=== PATIENT | male | born 1950 | race Caucasian/White ===

== ENCOUNTER → 2018-06-14 | Outpatient (CLI) | payer BC, MEDICARE ==
--- NOTE | 2018-06-14 09:01 | US ---
EXAMINATION TYPE: US carotid duplex BILAT DATE OF EXAM: 06/14/2018 COMPARISON: US CLINICAL HISTORY: R42 Dizziness and giddiness. EXAM MEASUREMENTS: RIGHT: Peak Systolic Velocity (PSV) cm/sec ----- Right CCA: 100.7 ----- Right ICA: 108.4 ----- Right ECA: 98.5 ICA/CCA ratio: 1.1 RIGHT: End Diastole cm/sec ----- Right CCA: 20.4 ----- Right ICA: 29.2 ----- Right ECA: 9.5 LEFT: Peak Systolic Velocity (PSV) cm/sec ----- Left CCA: 89.7 ----- Left ICA: 94.7 ----- Left ECA: 75.4 ICA/CCA ratio: 1.1 LEFT: End Diastole cm/sec ----- Left CCA: 16.0 ----- Left ICA: 27.2 ----- Left ECA: 0.0 VERTEBRALS (direction of flow): Right Vertebral: Antegrade Left Vertebral: Antegrade Rhythm: Normal No significant stenosis seen. Bilateral plaque noted. Intimal thickening is noted bilaterally. IMPRESSION: 1. Atheromatous plaquing without significant flow-limiting stenosis. Criteria for Assigning % of Stenosis / Diameter reduction (Estimation based on the indirect measurements of the internal carotid artery velocities (ICA PSV). 1. Normal (no stenosis)=ICA PSV < 125 cm/s: ratio < 2.0: ICA EDV<40 cm/s. 2. Less than 50% stenosis=ICA PSV < 125 cm/s: ratio < 2.0: ICA EDV<40 cm/s. 3. 50 to 69% stenosis=ICA PSV of 125 to 230 cm/s: ration 2.0 ? 4.0: ICA EDV 40-100 cm/s. 4. Greater than 70% stenosis to near occlusion= ICA PSV > 230 cm/s: ratio > 4.0: ICA EDV > 100 cm/s. 5. Near occlusion= ICA PSV velocities may be low or undetectable: variable ratio and ICA EDV. 6. Total occlusion=unable to detect flow.
== END | disposition home or self-care (01) ==
LOC: RADUSWWP 06:49
PROVIDERS: ATTEND Family Medicine
DX: I65.23 Occlusion and stenosis of bilateral carotid arteries (principal)
CPT/HCPCS: 93880

== ENCOUNTER → 2018-11-20 | Outpatient (CLI) | payer MEDICARE, BC ==
--- NOTE | 2018-11-20 14:51 | CT ---
EXAMINATION TYPE: CT brain wo con DATE OF EXAM: 11/20/2018 COMPARISON: 12/29/2010 MRI HISTORY: Hemiplegia, history of TIA's CT DLP: 1121 mGycm Automated exposure control for dose reduction was used. FINDINGS: Calcification the basal ganglia noted. Ventricular system is compatible with the patient's age. There are areas of faint low-attenuation within the white matter which are nonspecific but most typical ar eas of remote microvascular ischemia. No midline shift or mass effect. No acute hemorrhage. Calvarium intact. IMPRESSION: NONSPECIFIC WHITE MATTER CHANGES MOST TYPICAL REMOTE MICROVASCULAR ISCHEMIA. CORRELATE WITH MRI CL INICALLY WARRANTED.
== END | disposition home or self-care (01) ==
LOC: RADCTMAIN 14:22
PROVIDERS: ATTEND Nurse Practitioner Family
DX: R90.89 Other abnormal findings on diagnostic imaging of central nervous system (principal); I69.959 Hemiplegia and hemiparesis following unspecified cerebrovascular disease affecting unspecified side
CPT/HCPCS: 70450

== ENCOUNTER → 2018-12-18 | Outpatient (CLI) | payer MEDICARE, BC ==
[2018-12-18 17:38] LABS: HCT 44.3 % (39.0-53.0); HGB 14.8 gm/dL (13.0-17.5); MCHC 33.3 g/dL (31.0-37.0); MCV 83.9 fL (80.0-100.0); Mean Platelet Volume 6.3; Platelet Count 312 k/uL (150-450); RBC 5.28 m/uL (4.30-5.90); RDW 12.7 % (11.5-15.5); WBC 8.5 k/uL (3.8-10.6)
[2018-12-18 23:20] LABS: Albumin 4.4 g/dL (3.80-4.90); Albumin/Globulin Ratio 2.59 (1.60-3.17); Calcium 9.4 mg/dL (8.7-10.3); Globulin 1.7 g/dL (1.6-3.3); Potassium 4.2 mmol/L (3.5-5.5); Total Bilirubin 0.4 mg/dL (0.2-1.2); Total Protein 6.1 g/dL (6.2-8.2)
== END | disposition home or self-care (01) ==
LOC: LABWHC1 17:13
PROVIDERS: ATTEND Psychiatry & Neurology Pain Medicine
DX: I69.959 Hemiplegia and hemiparesis following unspecified cerebrovascular disease affecting unspecified side (principal)
CPT/HCPCS: 36415; 80053; 83090; 85027

== ENCOUNTER → 2020-04-15 | Outpatient (CLI) | payer MEDICARE, BC ==
--- NOTE | 2020-04-15 16:39 | US ---
EXAMINATION TYPE: US venous doppler duplex LE DATE OF EXAM: 04/15/2020 3:48 PM COMPARISON: NONE CLINICAL HISTORY: I83.899 VARICOSE VEINS LOWER EXT. SIDE PERFORMED: Bilateral TECHNIQUE: The lower extremity deep venous system is examined utilizing real time linear array sonog tim with graded compression, doppler sonography and color-flow sonography. VESSELS IMAGED: External Iliac Vein (EIV) Common Femoral Vein Deep Femoral Vein Greater Saphenous Vein * Femoral Vein Popliteal Vein Small Saphenous Vein * Proximal Calf Veins (* superficial vessels) Right Leg: Negative for DVT Left Leg: Negative for DVT IMPRESSION: No evidence of deep vein thrombosis in the right leg and left leg.
== END | disposition home or self-care (01) ==
LOC: RADUSWWP 15:46
PROVIDERS: ATTEND Family Medicine
DX: I83.899 Varicose veins of unspecified lower extremity with other complications (principal)
CPT/HCPCS: 93970

== ENCOUNTER → 2021-04-20 | Outpatient (CLI) | payer MEDICARE, BC ==
--- NOTE | 2021-04-20 07:39 | XR ---
EXAMINATION TYPE: XR orbit detect foreign body DATE OF EXAM: 04/20/2021 COMPARISON: NONE HISTORY: Pre-MRI orbits TECHNIQUE: 3 views obtained FINDINGS: Osseous structures are intact. No definite metallic foreign body overlying the orbits. IMPRESSION: No metallic foreign body overlying the orbits.
--- NOTE | 2021-04-20 13:53 | MR ---
EXAMINATION TYPE: MR cervical spine wo con DATE OF EXAM: 04/20/2021 COMPARISON: CT neck 07/23/2016 HISTORY: M47.812 cervical spondylosis TECHNIQUE: Multiplanar, multisequence images of the cervical spine were acquired. There is motion on the exam, artifact. C2-C3: No evidence for degenerative disc disease. No disc bulge/herniation or protrusion. No Canal stenosis. Foramina are patent bilaterally. C3-C4: Posterior disc bulge contacts the anterior thecal sac causes mild anterior thecal sac effaceme nt, mild bilateral foraminal encroachment present due to uncovertebral joint hypertrophy, facet arthr opathy. C4-C5: Small posterior central disc herniation suspected on the axial images, there is mild mass effe ct on the anterior thecal sac, left-sided foraminal encroachment is present due to uncovertebral join t hypertrophy, facet arthropathy change. C5-C6: Posterior broad-based disc bulge somewhat eccentric towards the right causing anterolateral ma ss effect on the thecal sac, bilateral foraminal encroachment is present due to uncovertebral joint h ypertrophy and facet arthropathy. C6-C7: Posterior extension endplate disc complex causes mild anterior mass effect on the thecal sac. Uncovertebral joint hypertrophy encroaches minimally on the foramina. C7-T1: No evidence for degenerative disc disease. No disc bulge/herniation or protrusion. No Canal stenosis. Foramina are patent bilaterally. Cervical segments are intact. There is normal alignment. Cervical spinal cord is of normal signal. Craniovertebral junction relationships are within normal limits. There is no significant spinal arleen nosis. Spondylosis is present at C5-6, C6-7 with associated loss of disc height signal, is endplate d iscogenic marrow signal change. IMPRESSION: There is motion, artifact on the exam. There is multilevel degenerative disc disease, foraminal encro achment.
== END | disposition home or self-care (01) ==
LOC: RADMRIMAIN 06:34
PROVIDERS: ATTEND Family Medicine
DX: M47.812 Spondylosis without myelopathy or radiculopathy, cervical region (principal); M50.320 Other cervical disc degeneration, mid-cervical region, unspecified level
CPT/HCPCS: 70030; 72141

== ENCOUNTER → 2021-06-07 | Outpatient (CLI) | payer MEDICARE, BC ==
--- NOTE | 2021-06-07 13:54 | P.PAINCN ---
History of Present Illness - Reason for Consult Consult date: 06/07/21 - History of Present Illness This is 70 years old male with a chronic history of severe mid back pain started in December 2020, and started after work-related injury, most of the pain localized between the lower part of shoulder blade area, and also he had some neck pain, but he reported that 90% of his pain is between the shoulder blade area, it's constant and increases with activity, he denies any radicular symptoms, denies any motor or sensory deficits, he denies any fever or night sweats, patient tried physical therapy and he is doing home exercise and he continued to have severe pain Past Medical History Past Medical History: Coronary Artery Disease (CAD), COPD, CVA/TIA, GERD/Reflux, Hyperlipidemia Additional Past Medical History / Comment(s): COPD, coronary artery disease, multiple TIAs, restless leg syndrome, hemorrhoids History of Any Multi-Drug Resistant Organisms: None Reported Past Surgical History: Appendectomy, Heart Catheterization Additional Past Surgical History / Comment(s): heart cath in Past Anesthesia/Blood Transfusion Reactions: Motion Sickness Additional Past Anesthesia/Blood Transfusion Reaction / Comm: VERTIGO Past Psychological History: No Psychological Hx Reported Past Alcohol Use History: None Reported Additional Past Alcohol Use History / Comment(s): QUIT SMOKING 1989, STARTED SMOKING 1969 APPROX Past Drug Use History: None Reported - Past Family History Brother(s) Family Medical History: Cancer Additional Family Medical History / Comment(s): BLADDER Medications and Allergies Home Medications Medication Instructions Recorded Confirmed Type "Dizziness Med" 1 tab PO DAILY PRN 05/22/15 06/07/21 History Budesonide-Formot 160-4.5 Mcg 2 puff INHALATION RT-BID 05/22/15 06/07/21 History [Symbicort 160-4.5 Mcg Inhaler] Cholecalciferol [Vitamin D3 (25 2,000 unit PO DAILY 05/22/15 06/07/21 History Mcg = 1000 Iu)] Omeprazole 40 mg PO QAM 05/22/15 06/07/21 History Simvastatin [Zocor] 40 mg PO HS 05/22/15 06/07/21 History Allergies Allergy/AdvReac Type Severity Reaction Status Date / Time dipyridamole Allergy Rash/Hives Verified 07/23/16 11:36 [From Persantine] venom-honey bee Allergy Anaphylaxis Verified 07/23/16 11:36 [bee venom (honey bee)] ibuprofen [From Motrin] AdvReac Nausea Verified 07/23/16 11:36 Physical Exam Vitals: Intake and Output 06/06/21 06/07/21 06/07/21 22:59 06:59 14:59 Other: Weight 62.596 kg Physical Examinations : -Constitutiona : Cooperative , not in acute distress . -HEENT : nech : supple , no Lymphadenopathy , normal thyroid size . : eyes : no ptosis , no icterus, no p hotophobia . - neurologic : Cranial nerve II to XII intact , no focal neurological deffecit . -psychatric : alert , oriented X 3 , appropriate affect , intact judgment and insight . -Lymphatic : no Lymphadenopathy . - musculoskeltal : Cervical Spine motor stregnth in the deltoid and biceps, normal right side , normal Left side motor stregnth biceps and the wrist extensors normal right side ,normal left side . motor stregnth in the triceps muscle . normal Right side , normal Left side deep tendon reflexes normal at the biceps , normal at Brachioradialis , normal at triceps. cervical facet loading test: Positive Bilaterally Spurling test= positive Right , positive left. Neck distraction test= positive Right , positive left. Veronica sign= positive right, positive left . Thoracic spine= Positive facet loading test mid thoracic area around T6 7 8 Flexion and extension of the torso cc injected with pain Lumber spine moter stegnth lower extremities ,thigh and legs 5/5 Right side , 5/5 Left side Results Comments: MRI of the lumbar spine multilevel cervical degenerative disc disease and multilevel cervical facet arthropathy Assessment and Plan Plan: Assessment and plan=1-thoracic spondylosis with thoracic facet arthropathy 2-cervical spondylosis with cervical facet arthropathy. 3-cervical degenerative disc disease. The patient reported that most of his pain in the thoracic area, we don't have any diagnostic tests for the thoracic spine Patient given a a total of computed tomography scan of the thoracic spine, and he will follow up in the pain clinic after that Most likely he have to do diagnostic medial branch block, the levels will be determined later on Time with Patient: Greater than 30 PQRS Measure Charge Sheet Measure #130: Documentation of Current Meds in Medical Chart: Patient's medications documented in chart Measure #226: Tobacco Use: Screen & Cessation Intervention: Pt not a tobacco user Measure #111: Pneumonia Vaccination: Pneumococcal vaccine administered or previously received Measure #47: Advance Care Plan: Advance care planning discussed & documented, pt chose/unable to give Measure #412: Opioid Treatment Agreement: No documentation of signed opioid treatment agreement Measure #408: Opioid Therapy Follow-up Evaluation: Patient had NO f/u eval minimum every 3 months during opioid therapy Measure #317: Preventitive Care & Scrn High Bld Press & F/U: Pre-hypertensive or hypertensive BP documented, pt will f/u with PCP Measure #128: Body Mass Index (BMI) Screening & Follow-up: BMI documented within normal parameters Measure #131: Pain Assessment & Follow-up: Pain positive & plan documented, Follow-up scheduled Measure #431: Unhealthy Alcohol Use Preventative Care & Scrn: Patient not identified as an unhealthy alcohol user PQRS Narrative: Smoking Status Former smoker Home Medications: Ambulatory Orders "Dizziness Med" 1 tab PO DAILY PRN 05/22/15 Budesonide-Formot 160-4.5 Mcg [Symbicort 160-4.5 Mcg Inhaler] 2 puff INHALATION RT-BID 05/22/15 Cholecalciferol [Vitamin D3 (25 Mcg = 1000 Iu)] 2,000 unit PO DAILY 05/22/15 Omeprazole 40 mg PO QAM 05/22/15 Simvastatin [Zocor] 40 mg PO HS 05/22/15
[2021-06-07 14:04] VITALS: BP 157/73; PULSE 104; RESP 16; TEMP 98.3
== END ==
LOC: PNWHC3 12:57
PROVIDERS: ATTEND Specialist
DX: M47.814 Spondylosis without myelopathy or radiculopathy, thoracic region (principal); M47.812 Spondylosis without myelopathy or radiculopathy, cervical region; M50.30 Other cervical disc degeneration, unspecified cervical region; J44.9 Chronic obstructive pulmonary disease, unspecified; K21.9 Gastro-esophageal reflux disease without esophagitis; I25.10 Atherosclerotic heart disease of native coronary artery without angina pectoris; E78.5 Hyperlipidemia, unspecified; Z86.73 Personal history of transient ischemic attack (TIA), and cerebral infarction without residual deficits; Z87.891 Personal history of nicotine dependence; Z91.030 Bee allergy status; Z88.6 Allergy status to analgesic agent
CPT/HCPCS: 99212

== ENCOUNTER → 2021-06-18 | Outpatient (CLI) | payer MEDICARE, BC ==
--- NOTE | 2021-06-21 14:12 | CT ---
EXAMINATION TYPE: CT thoracic spine wo con DATE OF EXAM: 06/18/2021 COMPARISON: CT chest 10/03/2014 HISTORY: 70-year-old male M47.81, Thoracic spondylosis. Patient states a machine fell on his chest Ap ril 2020, knocking him onto his back. Pain since. TECHNIQUE: Contiguous axial scanning of the thoracic spine without IV contrast. Coronal and sagittal reconstructions performed. CT DLP: 510.7 mGycm Automated exposure control for dose reduction was used. FINDINGS: Vertebral body heights are preserved. Alignment is maintained. Mild degenerative disc disease mid tho racic spine. Assessment of the spinal canal down to the T1 level is limited due to artifact from the patient's holger ulders. Along the visualized thoracic spine, no large focal disc herniation or evident canal compromi se is seen. Scattered mild facet arthropathy. Variable minimal to mild neural foraminal narrowing scattered throughout. No high-grade foraminal com promise is seen. Cervical spondylosis as discussed more fully on the patient's recent 04/20/2021 MRI. 1.9 cm low-density nodule of the left adrenal gland. Attenuation of -5 Hounsfield units compatible wi th a benign lipid rich left adrenal adenoma. IMPRESSION: 1. NO VERTEBRAL COMPRESSION COLLAPSE OR MALALIGNMENT. NO LARGE FOCAL DISC HERNIATION OR EVIDENT CANAL COMPROMISE IS SEEN BY CT. 2. MILD MULTILEVEL DEGENERATIVE DISC DISEASE. SCATTERED FACET ARTHROPATHY WITH VARIABLE MINIMAL TO PA LD NEURAL FORAMINAL NARROWING. 3. INCIDENTAL 1.9 CM BENIGN LIPID RICH LEFT ADRENAL ADENOMA.
== END | disposition home or self-care (01) ==
LOC: RADCTMAIN 14:50
PROVIDERS: ATTEND Specialist
DX: M51.34 Other intervertebral disc degeneration, thoracic region (principal); M47.814 Spondylosis without myelopathy or radiculopathy, thoracic region
CPT/HCPCS: 72128

== ENCOUNTER → 2021-06-28 | Outpatient (CLI) | payer MEDICARE, BC ==
[2021-06-28 14:15] VITALS: BP 154/87; PULSE 102; RESP 18; TEMP 98.2
--- NOTE | 2021-06-28 19:44 | P.PN ---
Subjective Progress Note Date: 06/28/21 This is a follow-up visit for this 70 years old male with a chronic history of severe upper back pain, and neck pain, patient being diagnosed with cervical spondylosis and cervical degenerative disc disease, because patient currently reported that most of his pain is between the shoulder blade area in the thoracic area, we ordered a computed tomography scan of the thoracic spine and patient here today for follow-up visit, and discussion about the results of the computed tomography scan of the thoracic spine, patient denies any motor or sensory deficit he continued to work, he denies any change in the bowel movement or urination Objective - Vital Signs Vital signs: Vital Signs Temp 98.2 F 06/28/21 14:09 Pulse 102 H 06/28/21 14:09 Resp 18 06/28/21 14:09 BP 154/87 06/28/21 14:09 Pulse Ox - Exam Physical Examinations : -Constitutiona : Cooperative , not in acute distress . -HEENT : nech : supple , no Lymphadenopathy , normal thyroid size . : eyes : no ptosis , no icterus, no photophobia . - neurologic : Cranial nerve II to XII intact , no focal neurological deffecit . -psychatric : alert , oriented X 3 , appropriate affect , intact judgment and insight . -Lymphatic : no Lymphadenopathy . - musculoskeltal : Cervical Spine motor stregnth in the deltoid and biceps, normal right side , normal Left side motor stregnth biceps and the wrist extensors normal right side ,normal left side . motor stregnth in the triceps muscle . normal Right side , normal Left side deep tendon reflexes normal at the biceps , normal at Brachioradialis , normal at triceps. cervical facet loading test: Positive Bilaterally Spurling test= positive Right , positive left. Neck distraction test= positive Right , positive left. Veronica sign= positive right, positive left . Thoracic spine= Positive facet loading test mid thoracic area around T6 7 8 Flexion and extension of the torso cc injected with pain Lumber spine moter stegnth lower extremities ,thigh and legs 5/5 Right side , 5/5 Left side Assessment and Plan Plan: Computed tomography scan of the thoracic spine= multilevel thoracic facet arthropathy and multilevel thoracic degenerative disc disease MRI of the cervical spine multilevel cervical degenerative disc disease and multilevel cervical facet arthropathy Assessment and plan=1-thoracic spondylosis with thoracic facet arthropathy 2-cervical spondylosis with cervical facet arthropathy. 3-cervical degenerative disc disease. The patient reported that most of his pain in the thoracic area he is good candidate to have diagnostic medial branch block thoracic area ,levels to be determined at the end of the procedure Under fluoroscopy guidance but clinically most of the pain today at between T6, T7, T8 bilaterally Time with Patient: less than 30 PQRS Measure Charge Sheet Measure #130: Documentation of Current Meds in Medical Chart: Patient's medications documented in chart Measure #226: Tobacco Use: Screen & Cessation Intervention: Pt not a tobacco user Measure #111: Pneumonia Vaccination: Pneumococcal vaccine administered or previously received Measure #47: Advance Care Plan: Advance care planning discussed & documented, pt chose/unable to give Measure #412: Opioid Treatment Agreement: No documentation of signed opioid treatment agreement Measure #408: Opioid Therapy Follow-up Evaluation: Patient had NO f/u eval minimum every 3 months during opioid therapy Measure #317: Preventitive Care & Scrn High Bld Press & F/U: Pre-hypertensive or hypertensive BP documented, pt will f/u with PCP Measure #128: Body Mass Index (BMI) Screening & Follow-up: BMI documented within normal parameters Measure #131: Pain Assessment & Follow-up: Pain positive & plan documented, Follow-up scheduled Measure #431: Unhealthy Alcohol Use Preventative Care & Scrn: Patient not identified as an unhealthy alcohol user PQRS Narrative: Time with Patient: Less than 30
== END ==
LOC: PNWHC3 13:45
PROVIDERS: ATTEND Specialist
DX: M47.814 Spondylosis without myelopathy or radiculopathy, thoracic region (principal); M47.812 Spondylosis without myelopathy or radiculopathy, cervical region; M50.30 Other cervical disc degeneration, unspecified cervical region; M25.559 Pain in unspecified hip; Z87.891 Personal history of nicotine dependence; Z91.030 Bee allergy status; Z88.6 Allergy status to analgesic agent; Z88.8 Allergy status to other drugs, medicaments and biological substances
CPT/HCPCS: 99211

== ENCOUNTER 2021-07-16 05:51 | Day surgery (SDC) | payer MEDICARE, BC ==
[2021-07-16] MEDS ORDERED: LACTATED RINGERS 1,000 ML IV ONE (06:17)
[2021-07-16 06:23] VITALS: RESP 18; TEMP 97.6
[2021-07-16] MEDS ORDERED: fentaNYL (PF) 50 MCG/ML 2 ML AMP ONE (07:01)
[2021-07-16] MEDS ORDERED: MIDAZOLAM 2 MG/2 ML VIAL ONE (07:01)
[2021-07-16] MEDS ORDERED: ROPIVACAINE 5MG/ML 20ML VIAL ONE (07:01)
[2021-07-16] MEDS ORDERED: methylPREDNISolone ACETATE 40 MG/ML 1 ML VIAL ONE (07:01)
[2021-07-16] MEDS ORDERED: LACTATED RINGERS 1,000 ML IV SCH ×2 (07:15→07:55)
[2021-07-16] MEDS ORDERED: IV FLUID CONTINUATION 1,000 ML IV ONE (07:29)
[2021-07-16 07:45] VITALS: BP 149/81; PULSE 90
--- NOTE | 2021-07-16 08:12 | P.PCN ---
Date of Procedure: 07/16/21 Description of Procedure: Preoperative diagnosis Thoracic spondylosis without myelopathy Postoperative diagnosis: Thoracic spondylosis without myelopathy procedure: Bilateral Thoracic T6-T7, and T7-T8 medial branch block under fluoroscopic guidance for levels #1 Anesthesia: Local with lidocaine 1% Sedation: 2 mg of IV Versed, and fentanyl Surgeon: Ashlee Rios Estimated blood loss: None Complications: none Specimen removed: None Fluoroscopic image: saved to Electronic medical records. Procedure indication: Patient had a history of thoracic back pain, and thoracic spondylosis without myelopathy. Patient tried conservative therapy. Came here for intervention procedure for better pain relief.. Description of procedure: The patient was seen in the preop holding area consent was obtained then was brought into the procedure room when placed in prone position. Skin was prepped with ChloraPrep and draped in a sterile manner. Under fluoroscopic guidance, the thoracic right side T6, T7, and T8 levels were identified in the AP view. 3 ml of 1% Lidocaine was used with a 25 gauge needle to achieve adequate local anesthesia of the skin and subcutaneous tissue. A 20 gauge 3.5 inch spinal needle was placed and advanced targeting the upper lateral one third of the transverse process of the corresponding level . A bony contact was obtained and needle tip position was confirmed. No paresthesia was noted. A negative aspiration was confirmed. A total of 6 ml solution containing 0.5% preservative-free ropivacaine mixed with 40 MG of dexamethasone was prepared as a block solution; 0.5 ml solution per level was injected. Same procedure repeated on the left side . The needles were removed intact, area was cleaned and bandages were applied. Disposition : The patient tolerated the procedure very well. The patient was transferred to the recovery room and remained stable until discharged home. The patient was given detailed discharge instructions for infection, bleeding, increased pain at the injection site, and was advised to seek immediate medical attention should significant side effects develop. The patient will be scheduled for repeat procedure if it helpful within 4 weeks .
--- NOTE | 2021-07-16 08:13 | FL ---
EXAMINATION TYPE: FL guided pain mgmt statistic DATE OF EXAM: 07/16/2021 HISTORY: Fluoroscopy time 7 seconds of fluoroscopy provided. IMPRESSION: 1. Fluoroscopy time.
== END 2021-07-16 08:02 | disposition home or self-care (01) ==
LOC: ORPAIN 05:51
DX: M47.814 Spondylosis without myelopathy or radiculopathy, thoracic region (principal); M19.90 Unspecified osteoarthritis, unspecified site; J44.9 Chronic obstructive pulmonary disease, unspecified; Z88.8 Allergy status to other drugs, medicaments and biological substances; Z88.6 Allergy status to analgesic agent; Z91.041 Radiographic dye allergy status; Z86.73 Personal history of transient ischemic attack (TIA), and cerebral infarction without residual deficits; E78.5 Hyperlipidemia, unspecified; I25.10 Atherosclerotic heart disease of native coronary artery without angina pectoris; R42 Dizziness and giddiness; Z79.899 Other long term (current) drug therapy
CPT/HCPCS: 64490; 64491; J2250; J1030; J3010; J2795

== ENCOUNTER → 2021-08-09 | Outpatient (CLI) | payer MEDICARE, BC ==
[2021-08-09 13:08] VITALS: BP 125/79; PULSE 109; RESP 18; TEMP 98.1
--- NOTE | 2021-08-09 13:08 | P.PN ---
Subjective Progress Note Date: 08/09/21 This is a follow-up visit for this 70 years old male with a chronic history of severe upper and mid back pain, and neck pain, patient being diagnosed with cervical spondylosis and cervical degenerative disc disease, recently would have done diagnostic medial branch block thoracic area T6, T7 ,T8 bilaterally, she reports that he got more than 90% improvement of his mid back pain after the block , patient denies any motor or sensory deficit he continued to work, he denies any change in the bowel movement or urination Physical Examinations : -Constitutiona : Cooperative , not in acute distress . -HEENT : nech : supple , no Lymphadenopathy , normal thyroid size . : eyes : no ptosis , no icterus, no photophobia . - neurologic : Cranial nerve II to XII intact , no focal neurological deffecit . -psychatric : alert , oriented X 3 , appropriate affect , intact judgment and insight . -Lymphatic : no Lymphadenopathy . - musculoskeltal : Cervical Spine motor stregnth in the deltoid and biceps, normal right side , normal Left side motor stregnth biceps and the wrist extensors normal right side ,normal left side . motor stregnth in the triceps muscle . normal Right side , normal Left side deep tendon reflexes normal at the biceps , normal at Brachioradialis , normal at triceps. cervical facet loading test: Positive Bilaterally Spurling test= positive Right , positive left. Neck distraction test= positive Right , positive left. Veronica sign= positive right, positive left . Thoracic spine= Positive facet loading test mid thoracic area around T6 7 8 Flexion and extension of the torso cc injected with pain Lumber spine moter stegnth lower extremities ,thigh and legs 5/5 Right side , 5/5 Left side Computed tomography scan of the thoracic spine= multilevel thoracic facet arthropathy and multilevel thoracic degenerative disc disease MRI of the cervical spine multilevel cervical degenerative disc disease and multilevel cervical facet arthropathy Assessment and plan=1-thoracic spondylosis with thoracic facet arthropathy 2-cervical spondylosis with cervical facet arthropathy. 3-cervical degenerative disc disease. The patient reported that most of his pain in the thoracic area he had excellent relief after the first diagnostic medial branch block thoracic area , T6, T7, T8 bilaterally Patient will be in good candidate to have a repeat diagnostic medial branch block T6, T7, T8 Billaterally Time with Patient: less than 30 - PQRS measures = - Patient's medications are documented in the chart. -Tobacco use is negative and counseling.Given. -Patient's has not received pneumococcal vaccine. -Advanced care planning discussed, patient not eligible. -Opiate contract not signed. -Pain positive and follow-up visit/procedure is scheduled. -Patient's blood pressure measured [125/79 ] , and documented in the record ,and patient will follow up with the primary care. -Patient's weight was measured and body mass index [ ] within the normal limits and counseling was done. and patient instructed to follow-up with the primary care physician. -Patient was not identified as an unhealthy alcohol user
== END ==
LOC: PNWHC3 12:16
PROVIDERS: ATTEND Specialist
DX: M47.814 Spondylosis without myelopathy or radiculopathy, thoracic region (principal); M47.812 Spondylosis without myelopathy or radiculopathy, cervical region; M50.30 Other cervical disc degeneration, unspecified cervical region; Z91.030 Bee allergy status; Z88.6 Allergy status to analgesic agent; Z88.8 Allergy status to other drugs, medicaments and biological substances; Z87.891 Personal history of nicotine dependence
CPT/HCPCS: 99211

== ENCOUNTER 2021-10-01 05:58 | Day surgery (SDC) | payer MEDICARE, BC ==
[2021-09-28 14:52] VITALS: BMI 23.3
[~2021-10-01 05:58] MED LIST: LACTATED RINGERS 1,000 ML IV SCH
[2021-10-01 06:20] VITALS: RESP 16; TEMP 97.4
[2021-10-01] MEDS ORDERED: LIDOCAINE 1% (10MG/ML) FOR IV START INTRADERMA ONE (06:20)
[2021-10-01] MEDS ORDERED: MIDAZOLAM 2 MG/2 ML VIAL ONE (06:57)
[2021-10-01] MEDS ORDERED: methylPREDNISolone ACETATE 40 MG/ML 1 ML VIAL ONE (06:57)
[2021-10-01] MEDS ORDERED: fentaNYL (PF) 50 MCG/ML 2 ML AMP ONE (06:57)
[2021-10-01] MEDS ORDERED: ROPIVACAINE 5MG/ML 20ML VIAL ONE (06:57)
--- NOTE | 2021-10-01 07:25 | P.PCN ---
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 PROCEDURE: Diagnostic bilateral T6- ,T7 ,T8 medial branch block under fluoroscopy guidance(fluoroscopy images available in the radiology Department ) ( To target the facet joint between T6-7 , and T7-8 )#2nd ANESTHESIA: Monitored anesthesia care as per anesthesia department. EBL: Minimal COMPLICATION: None PROCEDURE INDICATION: Chronic low back pain secondary to Facet arthropathy unresponsive to conservative treatment. PROCEDURE DESCRIPTION: the patient was seen and identified in the preop holding area , risks and benefits and possible complications of the procedure and alternative were discussed with the patient, and the patient agreed to proceed with the procedure and signed the consent and vital signs monitored during the procedure and fluoroscopy was used to maximize the benefit and acc uracy of the needle placement, and sedation was given to decrease patient anxiety, patient was taken to the procedure room and placed in prone position vital signs monitored in the back prepped with chlorhexidine X3 then under strict sterile technique using a right oblique fluoroscopy ,the junction of the transverse process and the superior articulating process of the right T6 ,T7 ,T8 vertebra which corresponding to the fluoroscopy image of the eye of the Jonathan dog on the block side for the medial branches and subsequently , after local infiltration of skin and subcu tissuies with Ropivacaine 0.5 % , one mL at each level ,then 22-gauge Quincke-type needles , 3 needle was used , each one of them placed at the junction of the base of the transverse process and the superior articular process at the appropriate level, and the needle was advanced until the periosteum contacted, needle placement confirmed with AP oblique and lateral view and after appropriate needle placement confirmed, and after negative aspiration for heme and CSF and there was no paresthesia 1-1/2 mL of Ropivacaine 0.5% mixed with 20 mg Depo-Medrol , then half mL injected at each level after negative aspiration the needle subsequently removed and the same procedure repeated for the left side at left side at T6 ,T7 ,T8 levels. At the end of the procedure and the needles removed and a bandage applied after the skin was cleaned the cleaning solution patient taken to recovery room in stable condition and monitors in the recovery room for 20-30 minutes and discharged home in stable condition after discharge criteria met and patient will follow up with the pain clinic in 2-4 weeks
[2021-10-01] MEDS ORDERED: IV FLUID CONTINUATION 1,000 ML IV ONE (07:28)
[2021-10-01] MEDS ORDERED: ONDANSETRON 4 MG/2 ML VIAL ONE (07:42)
[2021-10-01] MEDS ORDERED: ONDANSETRON 4 MG/2 ML VIAL IVP ONE (07:44)
[2021-10-01 07:46] VITALS: BP 140/77; PULSE 81
--- NOTE | 2021-10-01 07:58 | XR ---
EXAMINATION TYPE: XR chest 1V portable DATE OF EXAM: 10/01/2021 COMPARISON: Chest x-ray March 19, 2010. CTA chest October 03, 2014 HISTORY: Pain management thoracic spine rule out pneumothorax. TECHNIQUE: Single AP portable frontal upright view of the chest is obtained. FINDINGS: There is chronic painful change bilaterally redemonstrated. Patchy lateral left basilar op acity could reflect atelectasis and/or infiltrate. No pleural effusion or pneumothorax seen bilateral ly. The cardiac silhouette size is stable and upper limits of normal in size. There is displaced frac ture left mid clavicle now noted. IMPRESSION: No pneumothorax is evident bilaterally.
--- NOTE | 2021-10-01 08:34 | FL ---
Fluoroscopy HISTORY: Pain 11 seconds fluoroscopy time supplied to the referring clinician. 4 intraoperative C-arm images docum ent the procedure. See dictated report from anesthesia.
== END 2021-10-01 08:11 | disposition home or self-care (01) ==
LOC: ORPAIN 05:58
PROVIDERS: ATTEND Specialist
DX: G89.29 Other chronic pain (principal); M47.814 Spondylosis without myelopathy or radiculopathy, thoracic region; E78.5 Hyperlipidemia, unspecified; Z87.891 Personal history of nicotine dependence; Z86.73 Personal history of transient ischemic attack (TIA), and cerebral infarction without residual deficits; Z97.2 Presence of dental prosthetic device (complete) (partial); Z79.891 Long term (current) use of opiate analgesic; Z79.899 Other long term (current) drug therapy; Z88.6 Allergy status to analgesic agent; Z88.8 Allergy status to other drugs, medicaments and biological substances
CPT/HCPCS: 71045; 64490; 64491; J2250; J1030; J2405; J3010; J2795

== ENCOUNTER → 2021-10-21 | Outpatient (CLI) | payer MEDICARE, BC ==
[2021-10-21 13:57] VITALS: BP 163/79; PULSE 104; RESP 16; TEMP 97.6
--- NOTE | 2021-10-21 14:03 | P.PN ---
Subjective Progress Note Date: 10/21/21 Principal diagnosis: A 70 yr old male with a history of severe and chronic middle back pain secondary to thoracic degenerative disc diseases and lumbar spondylosis with facet arthropathy presents today for evaluation status post facet block of the medial branches T6- T7 and T7-T8 #2. Patient states he sustained 50% pain relief for 3 days status post procedure. Pain level is currently at 3 out of 10 in intensity, sharp in the middle aspect of the thoracic spine, but increases to 8 out of 10 in intensity with standing for 20 minutes or more, for flexion and overhead reaching. 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 Pain is alleviated with injections, physical therapy in July 2021, home exercise regimen, massage and rest. Interventional pain procedures completed include bilateral facet blocks of the medial branches T6-T7 and T7-T8 #2 Patient denies any side effects of the medication(s), denies excessive drowsiness or sleepiness, denies suicidal ideation and reports that the current pain medication is helping to control the pain and improve activities of daily living. Patient denies any motor or sensory deficits. Patient denies any fever or night sweats, denies any change in the bowel movements or urination. Physical Examination: -Constitutional: Cooperative. Not in acute distress . -HEENT: Neck is supple. No lymphadenopathy. No thyromegaly. Normal thyroid size. Eyes: No ptosis , no icterus, no photophobia. ENT: No auditory deficits. Normal oropharynx. No Thrush. - Respiratory: Chest clear to auscultations bilaterally. No wheezing. No rhonchi. - Cardiovascular: Regular rate and rhythm. S1 / S2 , no S3 , no S4. - Gastrointestinal: Abdomen soft no tenderness. Bowel sounds positive in all four quadrants. No organomegaly. - Genitourinary: Deferred. - Neurologic: Cranial nerve II to XII intact. No focal neurological deficits. - Psychatric: Alert & oriented x 3. Matching mood & appropriate affect. Judgment and insight intact. - Lymphatic: No Lymphadenopathy. - Musculoskeletal: Cervical spine: Muscle bulk/ tone/ strength in the bilateral upper extremities normal. Facet loading test cervical area positive. Thoracic spine: Vertebral body tenderness to palpation over teeth 6 and T7 Facet loading test positive over bilateral T6-T7 and T7-T8 with minimal paraspinal muscle spasms Lumbar spine: Motor bulk/ tone/ strength lower extremities , thigh and legs : 5/5 Deep tendon reflexes : Normal Knee Jerk. Normal Ankle Jerk . Vertebral body tenderness to palpation over Lumbar Facet Loading Test positive Straight Leg Raise: positive at 30 degrees right side/ left side Gaenslen's Test postive Sacral spine : Severe tenderness over the Sacroiliac joint: right side / left side Range of motion: Flexion of the lumbar spine <60 degrees Range of motion: Extension of the lumbar spine <20 degrees Gaenslen's Test positive Nidia test: positive right side / left side Assessment and plan: Chronic middle back pain secondary to thoracic degenerative disc disease , lumbar spondylosis with facet arthropathy without myelopathy Recommendation of bilateral RSA T6-T7 and T7-T8 Risks, benefits of procedure discussed and patient verbalized understanding Denies aspirin or anticoagulants use All patient questions answered MAPS reviewed and it was appropriate. I have spent 31 minutes on patient care today. Dr Cardenas was available by phone for the evaluation of this patient. The time was used to review the medical records including relevant urine studies and Prescription history (MAPs), review of the available imaging, evaluation and examination of the patient, coordination of care with the medical staff and if applicable referring physicians, as well as creation of the medical record Objective - Vital Signs Vital signs: Vital Signs Temp 97.6 F 10/21/21 13:47 Pulse 104 H 10/21/21 13:47 Resp 16 10/21/21 13:47 BP 163/79 10/21/21 13:47 Pulse Ox 94 L 10/21/21 13:47 PQRS Measure Charge Sheet Mode of Arrival: Ambulatory - Pain Location Back Non-Pharmacological Interventions: Heat, Home Exercise, Inactivity, Massage, Physical Therapy, Position/Reposition, Relaxation Technique, Stretching Pharmacological Interventions: Block PQRS Narrative: Smoking Status Former smoker Blood Pressure 163/79 Pain Intensity [Back] 3 Scale Used Numeric (1 - 10) Hx Alcohol Use (MH) No Home Medications: Ambulatory Orders Cholecalciferol [Vitamin D3 (25 Mcg = 1000 Iu)] 2,000 unit PO DAILY 05/22/15 Omeprazole 40 mg PO QAM PRN 05/22/15 Simvastatin [Zocor] 40 mg PO HS 05/22/15 EPINEPHrine (Auto Inject) [Epipen] 0.3 ml INJ DIRECTED PRN 06/28/21 Propylene Glycol/Peg 400/Pf [Systane 0.3-0.4% Eye Drop] 1 drop BOTH EYES DAILY 06/28/21
== END ==
LOC: PNWHC3 13:17
PROVIDERS: ATTEND Physician Assistant Medical
DX: M47.812 Spondylosis without myelopathy or radiculopathy, cervical region (principal); M51.34 Other intervertebral disc degeneration, thoracic region; M47.816 Spondylosis without myelopathy or radiculopathy, lumbar region; G89.29 Other chronic pain; Z87.891 Personal history of nicotine dependence; Z88.6 Allergy status to analgesic agent; Z91.030 Bee allergy status; Z88.5 Allergy status to narcotic agent; Z88.9 Allergy status to unspecified drugs, medicaments and biological substances
CPT/HCPCS: 99211

== ENCOUNTER 2021-12-03 05:52 | Day surgery (SDC) | payer MEDICARE, BC ==
[2021-12-01 13:07] VITALS: BMI 23.3
[2021-12-03] MEDS ORDERED: LACTATED RINGERS 1,000 ML IV SCH (06:03)
[2021-12-03] MEDS ORDERED: LIDOCAINE 1% (10MG/ML) FOR IV START INTRADERMA PRN (06:03)
[2021-12-03 06:17] VITALS: TEMP 98.1
[2021-12-03] MEDS ORDERED: ONDANSETRON 4 MG/2 ML VIAL ONE (06:39)
[2021-12-03] MEDS ORDERED: ONDANSETRON 4 MG/2 ML VIAL IVP ONE (06:41)
[2021-12-03] MEDS ORDERED: fentaNYL (PF) 50 MCG/ML 2 ML AMP ONE (07:00)
[2021-12-03] MEDS ORDERED: MIDAZOLAM 2 MG/2 ML VIAL ONE (07:00)
[2021-12-03] MEDS ORDERED: ROPIVACAINE 5MG/ML 20ML VIAL ONE (07:00)
[2021-12-03] MEDS ORDERED: methylPREDNISolone ACETATE 40 MG/ML 1 ML VIAL ONE (07:00)
[2021-12-03] MEDS ORDERED: IV FLUID CONTINUATION 400 ML IV ONE (07:35)
--- NOTE | 2021-12-03 07:36 | P.PCN ---
Date of Procedure: 12/03/21 Procedure(s) Performed: PREOPERATIVE DIAGNOSIS: 1-Thoracic Spondylosis with Facet Arthropathy without myelopathy. POSTOPERATIVE DIAGNOSIS: 1- Thoracic Spondylosis with Facet Arthropathy without myelopathy. PROCEDURES : Bilateral Radiofrequency thermocoagulation, T6 ,T7 ,T8 medial branch, with fluoroscopic guidance (fluoroscopy images available in the radiology department) ( to denervate the facet joint at Bilateral T6-7 ,and T7-8 levels ). ANESTHESIA: Monitored anesthesia care as per anesthesia department . EBL: Minimal PROCEDURE INDICATION: The patient with back pain secondary to Thoracic facet arthropathy who had more than 50% relief of her pain with previous diagnostic Thoracic medial branch block with bupivacaine. PROCEDURE DESCRIPTION / TECHNIQUE: The patient was seen and identified in the preoperative area. Risks, benefits, complications, including but not limited to risk of infection ,bleeding , allergic reactions to the medications and no complete pain releife , and alternatives were discussed with the patient, the patient agreed to proceed with the procedure and signed the consent. IV was started. Vital signs remained stable throughout the procedure. Patient was taken to the OR and time out was completed. The patient was placed in the prone position on the procedure table. The lumber area was prepped and draped in the usual sterile fashion. . Vital signs were closely monitored during the procedure .IV sedation was used during the procedure to decrease patients anxiety. Using AP and then oblique fluoroscopy, the ``eye of the Jonathan dog corresponding to the connection between the superior and transverse articular processes of right T6, T7 , T8 were identified, marked, and localized with 1% lidocaine. Subsequently, 20 -yf radiofrequency cannula with a 10-mm active tip was advanced guided by fluoroscopy to each of the``eyes of the Jonathan dog at right T6, T7 ,T8 Each site then underwent sensory testing at 50 Hz and 0 to 1 volt and motor testing at 2.5 Hz and 0 to 3 volt with local stimulation, but no radicular symptoms down the legs. Thereafter each sites underwent radiofrequency thermocoagulation at 80 degrees celsius for 90 seconds after injecting 0.5 ml of PF Ropivacaine 1ml, then after the thermocoagulation done , 1 ml of the block solution containing Depo-Medrol 20 mg and 3 ml of Ropivacaine 0.5% was injected at the right T6 ,T7 ,T8 , levels after negative aspiration of CSF and blood and with no paresthesias. Cannulas were retracted while injecting lidocaine 1% until the needle is out. The same procedure was repeated at the level of Left T6 ,T7 ,T8 levels. At the end of the procedure, the skin was cleansed and bandages were applied. COMPLICATIONS: No acute complications. DISPOSITION / PLANS: The patient was placed in a supine position and transferred to the recovery area in a stable condition for observation and was discharged from the recovery room after meeting discharge criteria. Home discharge instructions given to the patient by the staff. The patient was reexamined prior to discharge. The patient will schedule a follow up in the clinic in 2-4 weeks.
[2021-12-03] MEDS ORDERED: METOCLOPRAMIDE 5 MG/ML 2 ML VIAL ONE (08:08)
--- NOTE | 2021-12-03 08:22 | XR ---
EXAMINATION TYPE: XR chest 1V portable DATE OF EXAM: 12/03/2021 COMPARISON: Chest x-ray October 01, 2021 HISTORY: Post pain injection thoracic spine. TECHNIQUE: Single AP portable frontal upright view of the chest is obtained. FINDINGS: No pneumothorax seen bilaterally. Stable left basilar opacity. Right lung remains clear. T he cardiac silhouette size is stable and within normal limits. The osseous structures are intact. IMPRESSION: No pneumothorax.
[2021-12-03 08:41] VITALS: BP 110/69; PULSE 73; RESP 16
--- NOTE | 2021-12-03 09:29 | FL ---
EXAMINATION TYPE: FL guided pain mgmt statistic DATE OF EXAM: 12/03/2021 HISTORY: Fluoroscopy time 33 seconds of fluoroscopy provided. IMPRESSION: 1. Fluoroscopy time.
== END 2021-12-03 09:11 | disposition home or self-care (01) ==
LOC: ORPAIN 05:52
PROVIDERS: ATTEND Specialist
DX: M47.814 Spondylosis without myelopathy or radiculopathy, thoracic region (principal); E78.5 Hyperlipidemia, unspecified; Z87.891 Personal history of nicotine dependence; Z86.73 Personal history of transient ischemic attack (TIA), and cerebral infarction without residual deficits; K21.9 Gastro-esophageal reflux disease without esophagitis; Z88.6 Allergy status to analgesic agent; Z88.8 Allergy status to other drugs, medicaments and biological substances; Z79.899 Other long term (current) drug therapy; Z90.49 Acquired absence of other specified parts of digestive tract; Z98.890 Other specified postprocedural states
CPT/HCPCS: 71045; 64633; 64634; J2250; J1030; J2765; J2405; J3010; J2795

== ENCOUNTER → 2021-12-20 | Outpatient (CLI) | payer MEDICARE, BC ==
[2021-12-20 12:56] VITALS: BP 133/80; PULSE 95; RESP 16
--- NOTE | 2021-12-20 13:03 | P.PN ---
Subjective Progress Note Date: 12/20/21 Principal diagnosis: A 71 yr old male with a history of severe and chronic mid back pain secondary to thoracic degenerative disc diseases and spondylosis with facet arthropathy presents today for evaluation of BL RFA T6-T7, T7-T8. Patient states he experienced 75% pain relief status post procedure. Pain level is currently at 3 out of 10 in intensity, dull, achy in the middle aspect of his thoracic spine without radiation of pain. Pain is provoked by pulsating shower on his back and cold weather. Pain is alleviated with medications, injections, physical therapy in July and August 2021 which didn't help, laying supine and rest. Interventional pain procedures completed include BL RFA T6-T7, T7-T8 Patient is currently on OTC Tylenol Patient denies any side effects of the medication(s), denies excessive drowsiness or sleepiness, denies suicidal ideation and reports that the current pain medication is helping to control the pain and improve activities of daily living. Patient denies any motor or sensory deficits. Patient denies any fever or night sweats, denies any change in the bowel movements or urination. Physical Examination: -Constitutional: Cooperative. Not in acute distress . -HEENT: Neck is supple. No lymphadenopathy. No thyromegaly. Normal thyroid size. Eyes: No ptosis , no icterus, no photophobia. ENT: No auditory deficits. Normal oropharynx. No Thrush. - Respiratory: Chest clear to auscultations bilaterally. No wheezing. No rhonchi. - Cardiovascular: Regular rate and rhythm. S1 / S2 , no S3 , no S4. - Gastrointestinal: Abdomen soft no tenderness. Bowel sounds positive in all four quadrants. No organomegaly. - Genitourinary: Deferred. - Neurologic: Cranial nerve II to XII intact. No focal neurological deficits. - Psychatric: Alert & oriented x 3. Matching mood & appropriate affect. Judgment and insight intact. - Lymphatic: No Lymphadenopathy. - Musculoskeletal: Cervical spine: Muscle bulk/ tone/ strength in the bilateral upper extremities normal. Facet loading test cervical area positive. Thoracic spine: Mild BL T6-T8 paraspinal tenderness to palpation Lumbar spine: Motor bulk/ tone/ strength lower extremities , thigh and legs : 5/5 Deep tendon reflexes : Normal Knee Jerk. Normal Ankle Jerk . Vertebral body tenderness to palpation over Lumbar Facet Loading Test positive Straight Leg Raise: positive at 30 degrees right side/ left side Gaenslen's Test positive Sacral spine : Severe tenderness over the Sacroiliac joint: right side / left side Range of motion: Flexion of the lumbar spine <60 degrees Range of motion: Extension of the lumbar spine <20 degrees Gaenslen's Test positive Nidia test: positive right side / left side Assessment and plan: Chronic mid back pain secondary to thoracic degenerative disc disease , lumbar spondylosis with facet arthropathy without myelopathy Patient experienced sufficient pain relief with procedure. He may return to our office if indicated on an as-needed basis. All patient questions answered MAPS reviewed and it was appropriate. I have spent 31 minutes on patient care today. Dr Cardenas was available by phone for the evaluation of this patient. The time was used to review the medical records including relevant urine studies and Prescription history (MAPs), review of the available imaging, evaluation and examination of the patient, coordination of care with the medical staff and if applicable referring physicians, as well as creation of the medical record PQRS Measure Charge Sheet Mode of Arrival: Ambulatory PQRS Narrative: Smoking Status Former smoker Blood Pressure 133/80 Pain Intensity [Bilateral 3 Medial Back] Scale Used Numeric (1 - 10) Hx Alcohol Use (MH) No Home Medications: Ambulatory Orders Cholecalciferol [Vitamin D3 (25 Mcg = 1000 Iu)] 2,000 unit PO DAILY 05/22/15 Omeprazole 40 mg PO QAM PRN 05/22/15 Simvastatin [Zocor] 40 mg PO HS 05/22/15 EPINEPHrine (Auto Inject) [Epipen] 0.3 ml INJ DIRECTED PRN 06/28/21 Propylene Glycol/Peg 400/Pf [Systane 0.3-0.4% Eye Drop] 1 drop BOTH EYES DAILY 06/28/21
== END ==
LOC: PNWHC3 12:15
PROVIDERS: ATTEND Specialist
DX: M51.34 Other intervertebral disc degeneration, thoracic region (principal); M47.814 Spondylosis without myelopathy or radiculopathy, thoracic region; G89.29 Other chronic pain; Z87.891 Personal history of nicotine dependence; Z91.030 Bee allergy status; Z88.6 Allergy status to analgesic agent; Z88.8 Allergy status to other drugs, medicaments and biological substances
CPT/HCPCS: 99211

== ENCOUNTER → 2022-12-26 | Outpatient (CLI) | payer MEDICARE, BC ==
[2022-12-26 14:31] VITALS: BP 145/79; PULSE 88; RESP 18; TEMP 97.8
--- NOTE | 2022-12-26 14:36 | P.PAINPG ---
PQRS Measure Charge Sheet Comment: A 72 yr old male with a history of severe and chronic mid and lower back secondary to thoracolumbar DDD and spondylosis with facet arthropathy without myelopathy presents today for LBP. Pain level is provoked at 5/10 in intensity, constant, localized in the lumbar spine, throbbing in character w shooting down the BLEs. Pain is provoked by lifting or cold weather. Pain is alleviated with PT 6 wks which ended September 2021, heat, medications (ibuprofen), topical, laying supine, hot showers and rest. Interventional pain procedures completed include BL RFA T6-T7/ T7-T8 x2 Patient is currently on Ibu Patient denies any side effects of the medication(s), denies excessive drowsiness or sleepiness, denies suicidal ideation and reports that the current pain medication is helping to control the pain and improve activities of daily living. Patient denies any motor or sensory deficits. Patient denies any fever or night sweats, denies any change in the bowel movements or urination. Physical Examination: -Constitutional: Cooperative. Not in acute distress . - Neurologic: Cranial nerve II to XII intact. No focal neurological deficits. - Psychatric: Alert & oriented x 3. Matching mood & appropriate affect. Judgment and insight intact. - Musculoskeletal: Cervical spine: Muscle bulk/ tone/ strength in the bilateral upper extremities normal Vertebral body tenderness to palpation over Spurling test positive Distraction test positive Facet loading test positive TTP Thoracic spine Muscle bulk / tone/ strength in the bilateral paraspinal muscles normal Vertebral body tender to palpation over Facet loading test positive TTP Lumbar spine: Motor bulk/ tone/ strength lower extremities , thigh and legs : 5/5 Deep tendon reflexes : Normal Knee Jerk. Normal Ankle Jerk . Vertebral body tenderness to palpation over L5 Lumbar Facet Loading Test positive Straight Leg Raise: positive at 30 degrees right side/ left side Gaenslen's Test positive Sacral spine : Severe tenderness over the Sacroiliac joint: right side / left side Range of motion: Flexion of the lumbar spine <60 degrees Range of motion: Extension of the lumbar spine <20 degrees Gaenslen's Test positive right side / left side Nidia test: positive right side / left side Thigh Thrust Test positive right side / left side Sacral Thrust Test positive right side / left side Assessment and plan: Chronic mid back pain secondary to thoracic DDD, spondylosis with facet arthropathy without myelopathy Recommendation of lumbar x ray re: M51.36. May need additional testing, if indicated May return to clinic within 2-4 wks. All questions answered. I have spent less than 30 minutes on patient care today. Dr Cardenas was available by phone for the evaluation of this patient. The time was used to review the medical records including relevant urine studies and Prescription history (MAPs), review of the available imaging, evaluation and examination of the patient, coordination of care with the medical staff and if applicable referring physicians, as well as creation of the medical record PQRS Narrative: Smoking Status Former smoker Hx Alcohol Use (MH) No Home Medications: Ambulatory Orders Cholecalciferol [Vitamin D3 (25 Mcg = 1000 Iu)] 2,000 unit PO DAILY 05/22/15 Omeprazole 40 mg PO QAM PRN 05/22/15 Simvastatin [Zocor] 40 mg PO HS 05/22/15 EPINEPHrine (Auto Inject) [Epipen] 0.3 ml INJ DIRECTED PRN 06/28/21 Propylene Glycol/Peg 400/Pf [Systane 0.3-0.4% Eye Drop] 1 drop BOTH EYES DAILY 06/28/21 Controlled Substance Measures - Controlled Substance Measures Is patient prescribed a controlled substance at discharge?: No
--- NOTE | 2022-12-26 15:23 | XR ---
EXAMINATION TYPE: XR lumbar spine 2 or 3V DATE OF EXAM: 12/26/2022 COMPARISON: NONE HISTORY: Radiculopathy TECHNIQUE: 3 views of the lumbosacral spine were obtained per protocol. FINDINGS: There is no significant lateral curvature of the lumbar spine. There is no asymmetric widening of the sacroiliac joints. The visualized sacral lines are symmetric and contiguous. Vertebral body heights and alignment are within normal limits. There is mild trilevel disc space narrowing, most significant at L5-S1. There is mild multilevel facet arthropathy, most significant within the lower lumbar spine . There are atheromatous changes of the abdominal aorta. IMPRESSION: Mild multilevel lumbar spondylosis without compression deformity or spondylolisthesis.
== END ==
LOC: PNWHC3 13:05
PROVIDERS: ATTEND Specialist
DX: M51.15 Intervertebral disc disorders with radiculopathy, thoracolumbar region (principal); G89.29 Other chronic pain; Z87.891 Personal history of nicotine dependence; Z88.6 Allergy status to analgesic agent; Z88.8 Allergy status to other drugs, medicaments and biological substances; Z91.030 Bee allergy status; M47.25 Other spondylosis with radiculopathy, thoracolumbar region
CPT/HCPCS: 72100; G0463; 99211

== ENCOUNTER → 2022-12-28 | Outpatient (CLI) | payer MEDICARE, BC ==
--- NOTE | 2022-12-29 06:37 | MR ---
EXAMINATION TYPE: MR lumbar spine wo con DATE OF EXAM: 12/28/2022 COMPARISON: Lumbar spine x-ray December 26, 2022 HISTORY: Lower back pain, RLE radiculopathy, hx injury. Intervertebral disc degeneration. TECHNIQUE: Multiplanar, multisequence imaging of the lumbar spine is performed without IV contrast. FINDINGS: Sagittal images of the lumbar spine show vertebral body heights and alignment to appear sat isfactory. Multilevel disc desiccation but the disc space heights are preserved. The conus medullari s is normal in position and signal ending at T12-L1 disc space level. The bone marrow signal intensi ty is within normal limits. Axial images show T12-L1 through the L3-L4 levels to appear within normal limits. Axial images at L4-L5 level show mild broad disc bulge with annular tear minimally effacing anterior thecal sac. Patent bilateral neural foramina. Axial images at L5-S1 level shows central disc protrusion with mild facet arthropathy bilaterally. Sp inal canal is preserved as there is increased epidural fat at this level. Bilateral neural foramina a re patent. The paraspinal muscle bulk is maintained. IMPRESSION: Mild multilevel degenerative change in the lumbar spine as detailed above. No significant findings seen to account for patient's right-sided radiculopathy type symptoms.
== END | disposition home or self-care (01) ==
LOC: RADMRIMAIN 12:18
PROVIDERS: ATTEND Physician Assistant Medical
DX: M51.16 Intervertebral disc disorders with radiculopathy, lumbar region (principal); M47.26 Other spondylosis with radiculopathy, lumbar region
CPT/HCPCS: 72148

== ENCOUNTER → 2023-01-09 | Outpatient (CLI) | payer MEDICARE, BC ==
[2023-01-09 12:51] VITALS: BP 150/87; PULSE 93; RESP 18; TEMP 98.4
--- NOTE | 2023-01-09 15:16 | P.PAINPG ---
Objective - Vital Signs Vital signs: Intake & Output 01/08/23 01/09/23 01/09/23 18:59 06:59 18:59 Weight 61.235 kg PQRS Measure Charge Sheet Comment: A 72 yr old male with a history of severe and chronic LBP secondary to lumbar DDD and spondylosis with facet arthropathy without myelopathy presents today for MRI results. Pain level is provoked at 8 /10 in intensity, intermittent, localized in the lumbar spine, burning in character w shooting towards the BLEs. Pain is provoked by standing/ walking for periods of 15 min or more. Pain is alleviated with PT x 8 wks in Aug 2020, heat, medications, topical, laying supine and rest. Patient is currently on Tyl, Ibu Patient denies any side effects of the medication(s), denies excessive drowsiness or sleepiness, denies suicidal ideation and reports that the current pain medication is helping to control the pain and improve activities of daily living. Patient denies any motor or sensory deficits. Patient denies any fever or night sweats, denies any change in the bowel movements or urination. Physical Examination: -Constitutional: Cooperative. Not in acute distress . - Neurologic: Cranial nerve II to XII intact. No focal neurological deficits. - Psychatric: Alert & oriented x 3. Matching mood & appropriate affect. Judgment and insight intact. - Musculoskeletal: Cervical spine: Muscle bulk/ tone/ strength in the bilateral upper extremities normal Vertebral body tenderness to palpation over Spurling test positive Distraction test positive Facet loading test positive TTP Thoracic spine Muscle bulk / tone/ strength in the bilateral paraspinal muscles normal Vertebral body tender to palpation over Facet loading test positive TTP Lumbar spine: Motor bulk/ tone/ strength lower extremities , thigh and legs : 5/5 Deep tendon reflexes : Normal Knee Jerk. Normal Ankle Jerk . Vertebral body tenderness to palpation over L5 Lumbar Facet Loading Test positive Straight Leg Raise: positive at 30 degrees right side/ left side Gaenslen's Test positive Sacral spine : Severe tenderness over the Sacroiliac joint: right side / left side Range of motion: Flexion of the lumbar spine <60 degrees Range of motion: Extension of the lumbar spine <20 degrees Gaenslen's Test positive right side / left side Nidia test: positive right side / left side Thigh Thrust Test positive right side / left side Sacral Thrust Test positive right side / left side Imaging: MRI noncontrast at the lumbar spine from 12/29/22 reviewed Assessment and plan: Chronic LBP secondary to lumbar DDD, spondylosis with facet arthropathy without myelopathy Recommendation of NEO L5-S1. May need a series fo injections for optimal pain relief. Risks, benefits of procedure discussed and pt verbalized understanding. Admits to anticoagulant use or medical history of diabetes. Protocol for discontinuation/ continuation of medications beny procedure discussed. All questions answered. I have spent less than 30 minutes on patient care today. Dr Cardenas was available by phone for the evaluation of this patient. The time was used to review the medical records including relevant urine studies and Prescription history (MAPs), review of the available imaging, evaluation and examination of the patient, coordination of care with the medical staff and if applicable referring physicians, as well as creation of the medical record PQRS Narrative: Smoking Status Former smoker Hx Alcohol Use (MH) No Home Medications: Ambulatory Orders Cholecalciferol [Vitamin D3 (25 Mcg = 1000 Iu)] 2,000 unit PO DAILY 05/22/15 Omeprazole 40 mg PO QAM PRN 05/22/15 Simvastatin [Zocor] 40 mg PO HS 05/22/15 EPINEPHrine (Auto Inject) [Epipen] 0.3 ml INJ DIRECTED PRN 06/28/21 Propylene Glycol/Peg 400/Pf [Systane 0.3-0.4% Eye Drop] 1 drop BOTH EYES DAILY 06/28/21 Controlled Substance Measures - Controlled Substance Measures Is patient prescribed a controlled substance at discharge?: No
== END ==
LOC: PNWHC3 12:29
PROVIDERS: ATTEND Specialist
DX: M51.36 Other intervertebral disc degeneration, lumbar region (principal); M47.816 Spondylosis without myelopathy or radiculopathy, lumbar region; G89.29 Other chronic pain; Z87.891 Personal history of nicotine dependence; Z88.6 Allergy status to analgesic agent; Z88.8 Allergy status to other drugs, medicaments and biological substances; Z91.02 Food additives allergy status
CPT/HCPCS: 99211

== ENCOUNTER 2023-02-02 06:35 | Day surgery (SDC) | payer MEDICARE, BC ==
[2023-01-31 14:32] VITALS: BMI 22.6
[~2023-02-02 06:35] MED LIST changes: +LIDOCAINE 1% (10MG/ML) FOR IV START INTRADERMA PRN
[2023-02-02 06:57] VITALS: TEMP 97.4
[2023-02-02] MEDS ORDERED: methylPREDNISolone ACETATE 80 MG/ML 1 ML VIAL ONE (07:23)
[2023-02-02] MEDS ORDERED: MIDAZOLAM 2 MG/2 ML VIAL ONE (07:23)
[2023-02-02] MEDS ORDERED: IOPAMIDOL M200 10 ML VIAL ONE (07:23)
[2023-02-02] MEDS ORDERED: fentaNYL (PF) 50 MCG/ML 2 ML AMP ONE (07:23)
--- NOTE | 2023-02-02 07:30 | P.PCN ---
Date of Procedure: 02/02/23 Procedure(s) Performed: PREOPERATIVE DIAGNOSIS: 1- Lumbar Degenerative Disc Diseases 2-Lumbar spondylosis with Facet arthropathy without myelopathy. POSTOPERATIVE DIAGNOSIS: 1-lumbar degenerative disc disease. 2-lumbar spondylosis with facet arthropathy without myelopathy. PROCEDURE 1. Lumbar epidural steroid injection under fluoroscopic guidance at the L5-S1 level. (Fluoroscopy imaging was available in radiology department) 2. Lumbar epidurogram. ANESTHESIA: moderate sedation with intravenous Versed 1 mg ,and fentanyle 50 Mcg Sedation start time : 0 723 Sedation end time : 0 728 EBL: Minimal PROCEDURE INDICATION: The patient with low back pain and radiculitis symptoms unresponsive to conservative treatment. Fluoroscopy was used to optimize visualization of the needle placement and to maximize safety. PROCEDURE DESCRIPTION / TECHNIQUE: The patient was seen and identified in the preoperative area. Risks, benefits, complications including but not limited to infections ,bleeding ,allergic reac tion to the medications ,nerve damage and not complete pain releife , and alternatives were discussed with the patient. The patient agreed to proceed with the procedure and signed the consent. IV was started, and vital signs were stable. Patient was taken to the OR and time out was completed. The patient was placed in the prone position on procedure table and a pillow was placed under the abdomen to reduce lumbar lordosis. The lumbosacral area was prepped and draped in the usual sterile fashion.ere closely monitored during the procedure. Conscious sedation was used during the procedure to decrease patients anxiety. Vital signs was monitered during the entire procedure. Using anterior-posterior fluoroscopy, the L5-S1 interlaminar space was identified and the skin over this site was marked and then infiltrated with 1% lidocaine subcutaneously. Subsequently, a 20-gauge Tuohy epidural needle was inserted and advanced toward the epidural space using the ``Loss of resistance technique and guided by AP and lateral fluoroscopy. The correct needle position in the epidural space was verified with the injection of 2 mL of the water soluble contrast dye Isovue 200 contrast and observing an excellent epidurogram with the epidural spread of the dye, after negative aspiration for blood and CSF and in the absence of paresthesias. Again after negative aspiration, a 6 ml mixture containing 60 mg of Depo-medrol ( Preservetive Free ), and 2 ml of preservative free Normal Saline, and 2 ml of preservative free lidocaine 1% solution was injected and a washout of epidurogram was seen. Needle was withdrawn intact, skin was cleansed, and bandages were applied. COMPLICATIONS: None DISPOSITION / PLANS: The patient was placed in a supine position and transferred to the recovery area in a stable condition for observation. There was no evidence of lower extremity motor or sensory deficit after the procedure. Patient was discharged from the recovery room after meeting discharge criteria. Home discharge instructions were given to the patient by the staff. The patient was reexamined prior to discharge. The patient will schedule a follow up in the clinic in 2-4 weeks.
[2023-02-02] MEDS ORDERED: IV FLUID CONTINUATION 1,000 ML IV ONE (07:34)
[2023-02-02 07:37] VITALS: RESP 16
[2023-02-02 07:55] VITALS: BP 158/85; PULSE 85
--- NOTE | 2023-02-02 12:30 | FL ---
EXAMINATION TYPE: FL guided pain mgmt statistic DATE OF EXAM: 02/02/2023 FLUOROSCOPY Fluoroscopy time of 1 seconds was used during lumbar epidural steroid injection. image/s document/s t he procedure. DOSE AREA PRODUCT (DAP) UGY*M,MGY*CM: [id number] DAP
== END 2023-02-02 08:12 | disposition home or self-care (01) ==
LOC: ORPAIN 06:35
PROVIDERS: ATTEND Specialist
DX: M51.16 Intervertebral disc disorders with radiculopathy, lumbar region (principal); M47.26 Other spondylosis with radiculopathy, lumbar region; Z88.8 Allergy status to other drugs, medicaments and biological substances
CPT/HCPCS: 62323; J2250; J1040; J3010; Q9966

== ENCOUNTER → 2023-02-23 | Outpatient (CLI) | payer MEDICARE, BC ==
[2023-02-23 15:02] VITALS: BP 145/79; PULSE 106; RESP 18; TEMP 98.3
--- NOTE | 2023-03-02 10:30 | P.PAINPG ---
PQRS Measure Charge Sheet Comment: A 72 yr old male with a history of severe and chronic LBP x yrs after machine fell on him at work secondary to lumbar DDD and spondylosis with facet arthropathy without myelopathy presents today for evaluation s/p NEO L5-S1. 80% x 3 wks s/p procedure. Pain level is provoked at 2/10 in intensity, constant, localized in the lumbar spine, tingling in character without radiation. Pain has no provocation. Pain is alleviated with PT w massage x 6 wks in 2021, sitting, heated chair use, hot showers, pulsating shower head use, repositioning and rest. Interventional pain procedures completed include NEO L5-S1, BL RFA T6-T8 Patient is currently on DENIES Patient denies any side effects of the medication(s), denies excessive drowsiness or sleepiness, denies suicidal ideation and reports that the current pain medication is helping to control the pain and improve activities of daily living. Patient denies any motor or sensory deficits. Patient denies any fever or night sweats, denies any change in the bowel movements or urination. Physical Examination: -Constitutional: Cooperative. Not in acute distress . - Neurologic: Cranial nerve II to XII intact. No focal neurological deficits. - Psychatric: Alert & oriented x 3. Matching mood & appropriate affect. Judgment and insight intact. - Musculoskeletal: Cervical spine: Muscle bulk/ tone/ strength in the bilateral upper extremities normal Vertebral body tenderness to palpation over Spurling test positive Distraction test positive Facet loading test positive TTP Thoracic spine Muscle bulk / tone/ strength in the bilateral paraspinal muscles normal Vertebral body tender to palpation over Facet loading test positive TTP Lumbar spine: Motor bulk/ tone/ strength lower extremities , thigh and legs : 5/5 Deep tendon reflexes : Normal Knee Jerk. Normal Ankle Jerk . Vertebral body tenderness to palpation over Lira Test positive Lumbar Facet Loading Test positive Straight Leg Raise: positive at 30 degrees right side/ left side Gaenslen's Test positive Sacral spine : Severe tenderness over the Sacroiliac joint: right side / left side Range of motion: Flexion of the lumbar spine <60 degrees Range of motion: Extension of the lumbar spine <20 degrees Gaenslen's Test positive right side / left side Nidia test: positive right side / left side Thigh Thrust Test positive right side / left side Sacral Thrust Test positive right side / left side Assessment and plan: Chronic LBP secondary to lumbar DDD, spondylosis with facet arthropathy without myelopathy Will manage residual pain at home and may return to clinic on an as needed basis. All questions answered. I have spent less than 30 minutes on patient care today. Dr Cardenas was available by phone for the evaluation of this patient. The time was used to review the medical records including relevant urine studies and Prescription history (MAPs), review of the available imaging, evaluation and examination of t he patient, coordination of care with the medical staff and if applicable referring physicians, as well as creation of the medical record PQRS Narrative: Smoking Status Former smoker Hx Alcohol Use (MH) No Home Medications: Ambulatory Orders Cholecalciferol [Vitamin D3 (25 Mcg = 1000 Iu)] 2,000 unit PO DAILY 05/22/15 Omeprazole 40 mg PO QAM PRN 05/22/15 Simvastatin [Zocor] 40 mg PO HS 05/22/15 EPINEPHrine (Auto Inject) [Epipen] 0.3 ml INJ DIRECTED PRN 06/28/21 Propylene Glycol/Peg 400/Pf [Systane 0.3-0.4% Eye Drop] 1 drop BOTH EYES DAILY 06/28/21 Controlled Substance Measures - Controlled Substance Measures Is patient prescribed a controlled substance at discharge?: No
== END ==
LOC: PNWHC3 13:41
PROVIDERS: ATTEND Specialist
DX: M51.36 Other intervertebral disc degeneration, lumbar region (principal); M47.816 Spondylosis without myelopathy or radiculopathy, lumbar region; G89.29 Other chronic pain; Z87.891 Personal history of nicotine dependence; Z88.5 Allergy status to narcotic agent; Z88.8 Allergy status to other drugs, medicaments and biological substances; Z91.02 Food additives allergy status; Z88.6 Allergy status to analgesic agent
CPT/HCPCS: 99211

== ENCOUNTER → 2023-12-13 | Outpatient (CLI) | payer MEDICARE, BC ==
--- NOTE | 2023-12-13 17:37 | US ---
EXAMINATION TYPE: US kidneys/renal and bladder DATE OF EXAM: 12/13/2023 COMPARISON: NONE CLINICAL INDICATION: Male, 73 years old with history of R10.9 UNSPECIFIED ABDOMINAL PAIN; Intermitten t right flank pain for 3 years EXAM MEASUREMENTS: Right Kidney: 9.6 x 4.3 x 4.0 cm Left Kidney: 9.7 x 5.1 x 4.1 cm Right Kidney: no evidence of hydronephrosis Left Kidney: anechoic area lower pole = 1.5 x 1.0 x1.2cm compatible with small simple cyst Bladder: wnl Bilateral Jets seen: yes IMPRESSION: 1. Left renal cyst. 2. No suspicious acute ultrasound abnormality of the kidneys
== END | disposition home or self-care (01) ==
LOC: RADUSWWP 14:35
PROVIDERS: ATTEND Family Medicine
DX: N28.1 Cyst of kidney, acquired (principal)
CPT/HCPCS: 76770

== ENCOUNTER 2025-03-16 07:20 | Emergency (ER) | payer MEDICARE, BC ==
[2025-03-16 07:27] VITALS: TEMP 98.2
--- NOTE | 2025-03-16 07:38 | ED ---
Skin/Abscess/FB HPI - General Chief complaint: Skin/Abscess/Foreign Body Stated complaint: Thumb injuries Time Seen by Provider: 03/16/25 07:29 Source: patient, RN notes reviewed Mode of arrival: ambulatory Limitations: no limitations - History of Present Illness Initial comments: This is a 74-year-old male who presents to the emergency department for thumb injuries. States that 2 days ago he got both of his thumbs caught in a metal mill, causing wounds to the outsides. He does not believe that it necessarily reached the bone and he still has range of motion, however he states that the right cut was a little deeper and he cannot be sure about it. Unsure when his last tetanus vaccine was. He is not on blood thinners, but states that he has had difficulty controlling the bleeding. - Related Data Home Medications Medication Instructions Recorded Confirmed Cholecalciferol [Vitamin D3 (25 2,000 unit PO DAILY 05/22/15 01/31/23 Mcg = 1000 Iu)] Omeprazole 40 mg PO QAM PRN 05/22/15 01/31/23 Simvastatin [Zocor] 40 mg PO HS 05/22/15 01/31/23 EPINEPHrine (Auto Inject) [Epipen] 0.3 ml INJ DIRECTED PRN 06/28/21 01/31/23 Propylene Glycol/Peg 400/Pf 1 drop BOTH EYES DAILY 06/28/21 01/31/23 [Systane 0.3-0.4% Eye Drop] Allergies Allergy/AdvReac Type Severity Reaction Status Date / Time dipyridamole Allergy Rash/Hives Verified 03/16/25 07:27 [From Persantine] venom-honey bee Allergy Anaphylaxis Verified 03/16/25 07:27 [bee venom (honey bee)] gabapentin AdvReac Nausea & Verified 03/16/25 07:27 Vomiting ibuprofen [From Motrin] AdvReac Nausea Verified 03/16/25 07:27 Review of Systems ROS Statement: Those systems with pertinent positive or pertinent negative responses have been documented in the HPI. ROS Other: All systems not noted in ROS Statement are negative. Past Medical History Past Medical History: Coronary Artery Disease (CAD), COPD, CVA/TIA, GERD/Reflux, Hyperlipidemia Additional Past Medical History / Comment(s): Multiple TIAs, restless leg syndrome, hemorrhoids. History of Any Multi-Drug Resistant Organisms: None Reported Past Surgical History: Appendectomy, Heart Catheterization Additional Past Surgical History / Comment(s): Pain clinic procedure. Past Anesthesia/Blood Transfusion Reactions: Motion Sickness Additional Past Anesthesia/Blood Transfusion Reaction / Comment(s): VERTIGO. Past Psychological History: No Psychological Hx Reported Smoking Status: Former smoker Past Alcohol Use History: None Reported Past Drug Use History: None Reported - Past Family History Brother(s) Family Medical History: Cancer Additional Family Medical History / Comment(s): BLADDER CANCER. General Exam Limitations: no limitations General appearance: alert, in no apparent distress Head exam: Present: atraumatic, normocephalic, normal inspection Respiratory exam: Present: normal lung sounds bilaterally. Absent: respiratory distress, wheezes, rales, rhonchi, stridor Cardiovascular Exam: Present: regular rate, normal rhythm Neurological exam: Present: alert, oriented X3, CN II-XII intact Psychiatric exam: Present: normal affect, normal mood Skin exam: Present: other (Lacerations to the bilateral thumbs. No visible subcutaneous tissue. No active bleeding. Full range of motion.) Course Vital Signs 03/16/25 03/16/25 07:23 08:04 Temperature 98.2 F 98.2 F Pulse Rate 110 H 76 Respiratory 18 20 Rate Blood Pressure 132/83 138/85 O2 Sat by Pulse 96 99 Oximetry Medical Decision Making - Medical Decision Making This is a 74-year-old male who presents to the emergency department for injuries to both thumbs. Was pt. sent in by a medical professional or institution? @ -No Did you speak to anyone other than the patient for history? @ -No Did you review nursing and triage notes? @ -Yes, and I agree, it is accurate with regards to the patient's symptoms. Were old charts reviewed? @ -No Differential Diagnosis? @ -Differential Musculoskeletal Muscular strain, contusion, ligament sprain, fracture, arthritis, septic arthritis, bursitis, cellulitis, muscle spasm, nerve compression, DVT, arterial occlusion, herpes zoster, electrolyte abnormality, tumor.... This is not meant to be in all inclusive list EKG interpreted by me (3pts min.)? @ -Not obtained X-rays interpreted by me (1pt min.)? @ -X-ray of the bilateral thumbs obtained. My interpretation identifies no acute fractures. CT interpreted by me (1pt min.)? @ -Not obtained U/S interpreted by me (1pt. min.)? @ -Not obtained What testing was considered but not performed? (CT, X-rays, U/S, labs)? Why? @ -None What meds were considered but not given? Why? @ -None Did you discuss the management of the patient with other professionals? @ -No Did you reconcile home meds? @ -No Was smoking cessation discussed for >3mins.? @ -No Was critical care preformed (if so, how long)? @ -No Were there social determinants of health that impacted care today? How? (Homelessness, low income, unemployed, alcoholism, drug addiction, transportation, low edu. Level, literacy, decrease access to med. care, senior care, rehab)? @ -No Was there de-escalation of care discussed even if they declined? (Discuss DNR or withdrawal of care, Hospice)? @ -No What co-morbidities impacted this encounter? (DM, HTN, Smoking, COPD, CAD, Cancer, CVA, Hep., AIDS, mental health diagnosis, sleep apnea, morbid obesity)? @ -None Was patient admitted / discharged? @ -Discharged. Patient had lacerations to the bilateral thumbs. Bleeding was controlled at the time of arrival. Given that this occurred 2 days ago, advised that we cannot close it with something like sutures or skin adhesive due to risk of infection. In order to help the bleeding, Gelfoam was applied and the wounds were bandaged. Tetanus vaccine was also updated. Patient discharged home in stable condition and advised to follow-up with his PCP. Case discussed with ED attending Dr. Goff. Return precautions reviewed in depth, the patient is instructed to return to the emergency department with any new, worsening, or concerning symptoms. Patient verbalized understanding. Undiagnosed new problem with uncertain prognosis? @ -None Drug Therapy requiring intensive monitoring for toxicity (Heparin, Nitro, Insulin, Cardizem)? @ -None Were any procedures done? @ -None Diagnosis/symptom? @ -Thumb injury, laceration to the bilateral thumbs Acute, or Chronic, or Acute on Chronic? @ -Acute Uncomplicated (without systemic symptoms) or Complicated (systemic symptoms)? @ -Uncomplicated Side effects of treatment? @ -None Exacerbation, Progression, or Severe Exacerbation] @ -Not applicable Poses a threat to life or bodily function? @ -No - Radiology Data Radiology results: report reviewed, image reviewed Disposition Clinical Impression: Thumb injury, Laceration of right thumb, Laceration of left thumb Disposition: HOME SELF-CARE Instructions (If sedation given, give patient instructions): Laceration (ED) Additional Instructions: Return to the emergency department with any new, worsening, or concerning symptoms. If the Gelfoam sticks to the wound, do not remove it, just leave it in place. If it falls off, you can continue to apply antibiotic ointment to the wound before rebandaging it. Take Tylenol as needed for pain relief. Follow up with your primary care provider for reevaluation. Is patient prescribed a controlled substance at d/c from ED?: No Referrals: Vik Giraldo MD [Primary Care Provider] - 1-2 days Time of Disposition: 07:56
[2025-03-16] MEDS: DIPH,PERTUS(ACELL)TETVAC-LF 0.5 ML VIAL IM ONE (07:48)
[2025-03-16] MEDS: ACETAMINOPHEN TAB 500 MG TAB PO STA (07:48)
[2025-03-16] MEDS: BACITRACIN OINT 1 EACH PACKET TOPICAL ONE (07:49)
--- NOTE | 2025-03-16 08:07 | XR ---
EXAMINATION TYPE: XR finger or thumb bilateral DATE OF EXAM: 03/16/2025 7:51 AM COMPARISON: None CLINICAL INDICATION: Male, 74 years old with history of Thumb injury; PHH, pain TECHNIQUE: XR finger or thumb bilateral 3 views were obtained. FINDINGS: Normal alignment of the visualized joints. No acute osseous pathology is identified. No e vidence of soft tissue swelling. Multifocal degeneration changes with joint space narrowing and osteo phyte formation. tiny focus of radiopaque foreign body within the distal dorsal first digit. IMPRESSION: No acute osseous pathology. Multifocal osteoarthrosis throughout the joints of the hand. Small radiopaque foreign body noted near the nailbed dorsally. [facility], , 03/16/2025 8:05 AM
[2025-03-16 08:09] VITALS: BP 138/85; PULSE 76; RESP 20
== END 2025-03-16 08:30 | disposition home or self-care (01) ==
LOC: EC 07:20
DX: S61.011A Laceration without foreign body of right thumb without damage to nail, initial encounter (principal); S61.012A Laceration without foreign body of left thumb without damage to nail, initial encounter; Z86.73 Personal history of transient ischemic attack (TIA), and cerebral infarction without residual deficits; Z87.891 Personal history of nicotine dependence; Z88.6 Allergy status to analgesic agent; Z88.8 Allergy status to other drugs, medicaments and biological substances; Z91.030 Bee allergy status; Z23 Encounter for immunization; W31.1XXA Contact with metalworking machines, initial encounter
CPT/HCPCS: 90471; 90715; 99283